=== PATIENT | female | born 1950 | race Caucasian/White ===

== ENCOUNTER 2025-07-16 19:09 | Emergency (ER) | payer MEDICARE, BC ==
[2025-07-16] MEDS ORDERED: Sodium Chloride 0.9% 10 ML Syringe FLUSH PRN (19:20)
[2025-07-16] MEDS: Ondansetron 4 MG/2 ML SDV IVPUSH ONE (19:43)
[2025-07-16 19:50] LABS: MEAN PLATELET VOLUME 11.0 fL (6.0-10.0); PLATELET COUNT,PLT 160 K/uL (150-500); RED BLOOD CELL COUNT 3.32 M/uL (3.80-5.80); RED CELL DISTRIBUTION WIDTH 14.3 % (11.0-16.0); WHITE BLOOD CELL COUNT,WBC 8.7 K/uL (4.0-11.0)
[2025-07-16 19:57] LABS: A/G RATIO 1.0 (0.8-2.0); ALANINE AMINOTRANSFERASE,ALT 20.0 U/L (12-78); ASPARTATE AMNIOTRANSFERASE,AST 21.0 U/L (15-37); BILIRUBIN TOTAL 0.5 mg/dL (0.0-1.0); BLOOD UREA NITROGEN,BUN 15.0 mg/dL (8-26); CARBON DIOXIDE,CO2 27.9 mmol/L (21.0-32.0); CHLORIDE,CL 99.0 mmol/L (98-107); CREATININE 0.89 mg/dL (0.55-1.02); EST CRCL DRUG DOSING (CG) 48.39 mL/min; ESTIMATED GFR 67.0 mL/min (>60); GLUCOSE RANDOM 135.0 mg/dL (74-100); PROTEIN TOTAL,TP 8.1 g/dL (6.4-8.2); SODIUM,NA 139.0 mmol/L (136-145)
[2025-07-16 19:59] LABS: POTASSIUM,K 2.6 mmol/L (3.5-5.1)
[2025-07-16 20:21] LABS: INFLUENZA A NAA NEGATIVE (NEGATIVE); INFLUENZA B NAA NEGATIVE (NEGATIVE)
[2025-07-16 20:26] LABS: CORONAVIRUS COVID-19 NAA NEGATIVE (NEGATIVE)
[2025-07-16 20:34] LABS: BAND PERCENT MAN 1.0 %; LYMPHOCYTES PERCENT MAN 17.0 % (20.0-40.0); MONOCYTES PERCENT MAN 20.0 % (3.0-10.0); SEG NEUTROPHILS PERCENT MAN 62.0 % (45.0-70.0)
[2025-07-16] MEDS: Potassium Chloride 10 MEQ in Premix Bag 2 BAG IV ONE (20:34)
[2025-07-16 20:35] LABS: PLATELET COUNT ESTIMATE ADEQUATE
[2025-07-16] MEDS: Potassium Chloride 20 MEQ Tab.ER PO ONE (21:53)
[2025-07-16] MEDS ORDERED: Potassium Chloride 20 MEQ Tab.ER ONE (22:00)
[2025-07-16 23:04] VITALS: BP 143/70; PULSE 64
== END 2025-07-16 23:15 | disposition home or self-care (01) ==
LOC: LB.ED 19:09
DX: R11.10 Vomiting, unspecified (principal); E87.6 Hypokalemia; I10 Essential (primary) hypertension; Z90.710 Acquired absence of both cervix and uterus; Z79.899 Other long term (current) drug therapy
CPT/HCPCS: 36415; 80053; 83690; 84132; 85025; 87636; 93005; 96361; 96365; 96366; 96375; 99283; 99284-25; A9270-GY; J2405; J3480; J7030